=== PATIENT | female | born 1935 | race Two or more races ===

== ENCOUNTER 2017-11-22 23:34 | Inpatient (IN) | payer MEDICARE, OTHER ==
[~2017-11-22] VITALS: Ht 157.5 cm; Wt 63.5 kg
[2017-11-22 23:34] VITALS: BP 150/86
[~2017-11-22 23:34] MED LIST: ASPIR 8181 MG ORAL; BLOOD PRESSURE MED ORAL; CHOLESTEROL MED ORAL; THYROID MED ORAL
[2017-11-22] MEDS ORDERED: Enoxaparin 60mg Inj SUBQ ONE (23:45)
[2017-11-23] VITALS (7 sets, daily range): BP systolic 94–130; BP diastolic 47–78
[2017-11-23 00:01] LABS: BASOPHILS % (AUTO) 1.1 % (0.0-2.0); EOSINOPHILS % (AUTO) 1.8 % (0.0-3.0); HEMATOCRIT 36.3 % (37.0-47.0); HEMOGLOBIN 12.2 G/DL (12.0-16.0); LYMPHOCYTES % (AUTO) 34.2 % (20.0-45.0); MEAN CORPUSCULAR VOLUME 85 FL (80-99); MONOCYTES % (AUTO) 5.1 % (1.0-10.0); NEUTROPHILS % (AUTO) 57.8 % (45.0-75.0); PLATELET COUNT 223 K/UL (150-450); RED BLOOD COUNT 4.29 M/UL (4.20-5.40); RED CELL DISTRIBUTION WIDTH 11.6 % (11.6-14.8); WHITE BLOOD COUNT 8.5 K/UL (4.8-10.8)
[2017-11-23 00:11] LABS: ANION GAP 10 mmol/L (5-15); BLOOD UREA NITROGEN 29 mg/dL (7-18); CALCIUM 8.6 MG/DL (8.5-10.1); CARBON DIOXIDE 27 MMOL/L (21-32); CHLORIDE 98 MMOL/L (98-107); CREATININE 1.1 MG/DL (0.55-1.30); POTASSIUM 3.3 MMOL/L (3.5-5.1); SODIUM 135 MMOL/L (136-145)
[2017-11-23 00:26] LABS: ALANINE AMINOTRANSFERASE 21 U/L (12-78); ALBUMIN 3.5 G/DL (3.4-5.0); ALBUMIN/GLOBULIN RATIO 0.9 (1.0-2.7); ALKALINE PHOSPHATASE 77 U/L (46-116); ASPARTATE AMINO TRANSFERASE 14 U/L (15-37); BILIRUBIN,TOTAL 0.4 MG/DL (0.2-1.0); CKMB 1.5 NG/ML (0.0-3.6); CREATINE KINASE 106 U/L (26-308)
--- NOTE | 2017-11-23 01:32 | Emergency Room Report ---
History of Present Illness General Chief Complaint: Chest Pain Source: Patient, Family Member, EMS Present Illness HPI This is a-year-old female with a history of paroxysmal A. fib. She presents with chief complaint of rapid heartbeat and having chest pressure chest pain. Radiate to her left arm. She called 911 and was given aspirin and nitroglycerin symptom resolved. No fever or chills and no exertional component. Only taking aspirin. Denies any other complaint. She said that she had a stress test before and was negative. Allergies: Coded Allergies: No Known Allergies (Unverified , 08/14/12) Patient History Past Medical History: see triage record, old chart reviewed, CAD Past Surgical History: none Pertinent Family History: none Social History: Denies: smoking Last Menstrual Period: None Now: No Immunizations: other Reviewed Nursing Documentation: PMH: Agreed, PSxH: Agreed Nursing Documentation-PMH Hx Cardiac Problems: Yes - ANGIOGRAPH LAST YEAR Hx Hypertension: Yes - palpatation Hx Cancer: Yes - PATIENT STATES SHE HAD "THYROID CANCER" Hx Gastrointestinal Problems: Yes Hx Neurological Problems: No Review of Systems Eye: Denies: eye pain, blurred vision ENT: Denies: ear pain, nose congestion, throat swelling Respiratory: Denies: cough, shortness of breath Cardiovascular: Reports: chest pain, Denies: palpitations Gastrointestinal: Denies: abdominal pain, diarrhea, nausea, vomiting Musculoskeletal: Denies: back pain, joint pain Skin: Denies: rash Neurological: Denies: headache, numbness Endocrine: Denies: increased thirst, increased urine Hematologic/Lymphatic: Denies: easy bruising All Other Systems: negative except mentioned in HPI Physical Exam Vital Signs Date Time Temp Pulse Resp B/P (MAP) Pulse Ox O2 Delivery O2 Flow Rate FiO2 11/22/17 23:23 97.5 122 20 150/86 98 Room Air -100 blood pressure and tachycardia Sp02 EP Interpretation: reviewed, normal General Appearance: well appearing, no apparent distress, alert Head: normocephalic, atraumatic Eyes: bilateral eye PERRL, bilateral eye EOMI ENT: hearing grossly normal, normal pharynx Neck: full range of motion, supple, no meningismus Respiratory: chest non-tender, lungs clear, normal breath sounds Cardiovascular #1: regular rate, rhythm - Heart rate 60, no murmur Gastrointestinal: normal bowel sounds, non tender, no mass, no organomegaly, no bruit, non-distended Musculoskeletal: back normal, gait/station normal, normal range of motion Psychiatric: mood/affect normal Skin: warm/dry Medical Decision Making Diagnostic Impression: Primary Impression: Chest pain Qualified Codes: R07.9 - Chest pain, unspecified Additional Impressions: ACS (acute coronary syndrome) Palpitations ER Course Patient with chest pain. Most likely secondary to rapid A. fib. Heart rate is been in the 50s and 60s here. Blood pressure stable. She is asymptomatic here. Because of her age and risk factor, will admit for further workup. Laboratory Tests Test 11/22/17 23:40 White Blood Count 8.5 K/UL (4.8-10.8) Red Blood Count 4.29 M/UL (4.20-5.40) Hemoglobin 12.2 G/DL (12.0-16.0) Hematocrit 36.3 % (37.0-47.0) L Mean Corpuscular Volume 85 FL (80-99) Mean Corpuscular Hemoglobin 28.4 PG (27.0-31.0) Mean Corpuscular Hemoglobin Concent 33.6 G/DL (32.0-36.0) Red Cell Distribution Width 11.6 % (11.6-14.8) Platelet Count 223 K/UL (150-450) Mean Platelet Volume 6.8 FL (6.5-10.1) Neutrophils (%) (Auto) 57.8 % (45.0-75.0) Lymphocytes (%) (Auto) 34.2 % (20.0-45.0) Monocytes (%) (Auto) 5.1 % (1.0-10.0) Eosinophils (%) (Auto) 1.8 % (0.0-3.0) Basophils (%) (Auto) 1.1 % (0.0-2.0) Prothrombin Time 10.4 SEC (9.30-11.50) Prothromb Time International Ratio 1.0 (0.9-1.1) Activated Partial Thromboplast Time 26 SEC (23-33) Sodium Level 135 MMOL/L (136-145) L Potassium Level 3.3 MMOL/L (3.5-5.1) L Chloride Level 98 MMOL/L (98-107) Carbon Dioxide Level 27 MMOL/L (21-32) Anion Gap 10 mmol/L (5-15) Blood Urea Nitrogen 29 mg/dL (7-18) H Creatinine 1.1 MG/DL (0.55-1.30) Estimat Glomerular Filtration Rate mL/min (>60) Glucose Level 141 MG/DL (74-106) H Calcium Level 8.6 MG/DL (8.5-10.1) Total Bilirubin 0.4 MG/DL (0.2-1.0) Aspartate Amino Transf (AST/SGOT) 14 U/L (15-37) L Alanine Aminotransferase (ALT/SGPT) 21 U/L (12-78) Alkaline Phosphatase 77 U/L (46-116) Total Creatine Kinase 106 U/L (26-308) Creatine Kinase MB 1.5 NG/ML (0.0-3.6) Creatine Kinase MB Relative Index 1.4 Troponin I 0.000 ng/mL (0.000-0.056) Total Protein 7.6 G/DL (6.4-8.2) Albumin 3.5 G/DL (3.4-5.0) Globulin 4.1 g/dL Albumin/Globulin Ratio 0.9 (1.0-2.7) L Lab Results Impression labs normal EKG Diagnostic Results Rate: normal Rhythm: NSR ST Segments: no acute changes Rhythm Strip Diag. Results Rhythm Strip Time: 01:31 EP Interpretation: yes Rate: 60 Rhythm: NSR, no PVC's, no ectopy Chest X-Ray Diagnostic Results Chest X-Ray Diagnostic Results : Chest X-Ray Ordered: Yes # of Views/Limited/Complete: 1 View Indication: Chest Pain EP Interpretation: Yes Interpretation: no consolidation, no effusion, no pneumothorax, no acute cardiopulmonary disease Impression: No acute disease Electronically Signed by: Alec Bose MD Last Vital Signs Date Time Temp Pulse Resp B/P (MAP) Pulse Ox O2 Delivery O2 Flow Rate FiO2 11/22/17 23:23 97.5 122 20 150/86 98 Room Air Status: improved Disposition: ADMITTED INPATIENT Condition: Serious Referrals: NOT CHOSEN KEVIN/,REFERRING (PCP) ALEC BOSE M.D. Nov 23, 2017 01:32
--- NOTE | 2017-11-23 10:20 | Diagnostic Imaging Report ---
Indication: Reason For Exam: CP Technique: One view of the chest Comparison: none Findings: Suboptimal inspiration. Atelectatic changes and crowding of the vascular markings are seen at the left lung base. There is central bronchial wall thickening. No definite acute fractures or dislocations. Heart size is normal. The aorta is tortuous and calcified Impression: No acute process
[2017-11-23] MEDS ORDERED: Zolpidem 5mg tab ORAL PRN (11:45)
[2017-11-23] MEDS: Aspirin Baby 81mg ORAL SCH (13:13)
[2017-11-23] MEDS: Nitroglycerin 2% oint pkt TOPIC SCH ×2 (16:34→22:00)
[2017-11-23] MEDS ORDERED: AMLODIPINE BES2.5 MG ORAL (17:32)
[2017-11-23] MEDS ORDERED: BENICAR HCT 401 EACH ORAL (17:36)
[2017-11-23] MEDS ORDERED: FISH OIL CAP1000 MG ORAL (17:36)
[2017-11-23] MEDS ORDERED: CRESTOR20 MG ORAL (17:36)
[2017-11-23] MEDS ORDERED: EZETIMIBE10 MG PO (17:36)
[2017-11-23] MEDS ORDERED: LEVOTHYROXINE137 MCG ORAL (17:36)
--- NOTE | 2017-11-23 20:15 | History and Physical Report ---
DATE OF ADMISSION: 11/23/2017 REASON FOR ADMISSION: Chest pain. HISTORY OF PRESENT ILLNESS: This is an 82-year-old female with history of atrial fibrillation, which is paroxysmal. The patient presents with fast heart beat as well as some chest pain and chest pressure with radiation to the left arm. The patient was brought in by paramedics. She was given aspirin and nitroglycerin in the field. Currently, without fevers or chills. In the emergency room, the patient was seen and evaluated, was noted to have a heart rate of 50 to 60, blood pressure was stable, and the patient was felt to require admission for possible acute coronary syndrome. The patient currently is comfortable without significant distress. No other associated symptoms noted. No ill contacts. No recent travel. No cough or congestion. PAST MEDICAL HISTORY: Notable for history of CAD, history of recent angiogram, history of thyroid cancer, and history of atrial fibrillation, paroxysmal. MEDICATIONS: Reviewed. ALLERGIES: Reviewed. SOCIAL HISTORY: Nonsmoker and nondrinker. The patient is independent, lives at home. FAMILY HISTORY: Otherwise negative for heart disease. REVIEW OF SYSTEMS: Otherwise negative, all reviewed. PHYSICAL EXAMINATION: GENERAL: A well-developed female, comfortable at present. VITAL SIGNS: Blood pressure 94/69, respirations 26, saturations 100%, pulse 74, and temperature 97.5. HEENT: Fairly negative. The patient's oropharynx is moist. NECK: Supple. No adenopathy. LUNGS: Moderate air entry. No rhonchi or wheezes. CARDIAC: Fairly regular, but bradycardic. No murmurs, rubs, or gallops. ABDOMEN: Soft, nontender, and nondistended. EXTREMITIES: No cyanosis or clubbing. No significant edema. NEUROLOGIC: Grossly nonfocal. LABORATORY DATA: Laboratory data reviewed in detail. CBC essentially normal. Electrolytes, sodium 135, potassium 3.3, otherwise fairly negative. Blood sugar 141. Troponin initially negative. IMPRESSION: 1. Chest pain, possible acute coronary syndrome. 2. Atrial fibrillation, paroxysmal. 3. History of coronary artery disease. RECOMMENDATION: Resume home medications. Serial troponins. Cardiac evaluation. Telemetry and monitor. Followup EKG for change, and follow up further. If the patient is stable, we will proceed with discharge planning to home with an outpatient followup. Rico Landaverde M.D. DR: JOB JOB#: [id number] CC: JAYME
[2017-11-23] MEDS ORDERED: Atenolol 25mg tab ORAL SCH (21:00)
[2017-11-23] MEDS ORDERED: Atorvastatin 20mg tab ORAL SCH (21:00)
[2017-11-23] MEDS: Heparin 5000 units/ml inj SUBQ SCH (21:00)
[2017-11-24 00:44] VITALS: BP 128/61
[2017-11-24 08:00] VITALS: BP 128/59
[2017-11-24 08:20] LABS: BASOPHILS % (AUTO) 1.6 % (0.0-2.0); EOSINOPHILS % (AUTO) 2.5 % (0.0-3.0); HEMATOCRIT 33.5 % (37.0-47.0); HEMOGLOBIN 11.3 G/DL (12.0-16.0); LYMPHOCYTES % (AUTO) 40.2 % (20.0-45.0); MEAN CORPUSCULAR VOLUME 86 FL (80-99); MONOCYTES % (AUTO) 6.6 % (1.0-10.0); NEUTROPHILS % (AUTO) 49.1 % (45.0-75.0); PLATELET COUNT 232 K/UL (150-450); RED BLOOD COUNT 3.91 M/UL (4.20-5.40); WHITE BLOOD COUNT 5.9 K/UL (4.8-10.8)
[2017-11-24 08:48] LABS: ANION GAP 7 mmol/L (5-15); BLOOD UREA NITROGEN 26 mg/dL (7-18); CALCIUM 8.3 MG/DL (8.5-10.1); CARBON DIOXIDE 28 MMOL/L (21-32); CHLORIDE 104 MMOL/L (98-107); CHOLESTEROL 147 MG/DL (< 200); CREATININE 1.1 MG/DL (0.55-1.30); HDL CHOLESTEROL 87 MG/DL (40-60); POTASSIUM 4.1 MMOL/L (3.5-5.1); SODIUM 139 MMOL/L (136-145); TRIGLYCERIDES 67 MG/DL (30-150)
--- NOTE | 2017-11-24 08:52 | General Progress Note ---
Assessment/Plan Assessment/Plan IMPRESSION: 1. Chest pain, possible acute coronary syndrome. 2. Atrial fibrillation, paroxysmal. 3. History of coronary artery disease. 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 return to ER if chest pain recurs dc beta atul patient stable at present and able to to ambulate impression, plan, and exam edited and reviewed in detail care discussed with RN Subjective Allergies: Coded Allergies: No Known Allergies (Unverified , 08/14/12) Subjective wants to go home roopa with beta atul use Objective Last 24 Hour Vital Signs Date Time Temp Pulse Resp B/P (MAP) Pulse Ox O2 Delivery O2 Flow Rate FiO2 11/24/17 04:00 47 11/24/17 00:44 97.6 59 18 128/61 95 Room Air 11/24/17 00:00 52 11/23/17 22:00 130/78 11/23/17 21:00 94 128/56 11/23/17 20:34 97.9 68 18 130/78 94 Room Air 11/23/17 20:00 64 11/23/17 16:34 125/55 11/23/17 16:00 61 11/23/17 16:00 97.5 73 18 125/55 97 11/23/17 12:00 98.2 70 18 109/55 95 Room Air 11/23/17 09:48 97.5 74 26 94/69 100 Room Air Intake and Output 11/23/17 11/24/17 19:00 07:00 Intake Total 490 ml Output Total 200 ml Balance 490 ml -200 ml Intake Oral 490 ml Output Urine Total 200 ml # Voids 1 Laboratory Tests 11/23/17 19:47: Troponin I 0.007 11/24/17 07:35: Troponin I 0.004, White Blood Count 5.9, Red Blood Count 3.91L, Hemoglobin 11.3L , Hematocrit 33.5L, Mean Corpuscular Volume 86, Mean Corpuscular Hemoglobin 28.8 , Mean Corpuscular Hemoglobin Concent 33.5, Red Cell Distribution Width 12.0, Platelet Count 232, Mean Platelet Volume 7.1, Neutrophils (%) (Auto) 49.1, Lymphocytes (%) (Auto) 40.2, Monocytes (%) (Auto) 6.6, Eosinophils (%) (Auto) 2.5, Basophils (%) (Auto) 1.6, Sodium Level [Pending], Potassium Level [Pending] , Chloride Level [Pending], Carbon Dioxide Level [Pending], Blood Urea Nitrogen [Pending], Creatinine [Pending], Estimat Glomerular Filtration Rate [Pending], Glucose Level [Pending], Calcium Level [Pending], Triglycerides Level [Pending] , Cholesterol Level [Pending], LDL Cholesterol [Pending], HDL Cholesterol [ Pending], Cholesterol/HDL Ratio [Pending] Height (Feet): 5 Height (Inches): 2.00 Weight (Pounds): 140 Objective GENERAL: A well-developed female, comfortable at present. but wants to go home HEENT: Fairly negative. The patient's oropharynx is moist. NECK: Supple. No adenopathy. LUNGS: Moderate air entry. No rhonchi or wheezes. CARDIAC: Fairly regular, but bradycardic. No murmurs, rubs, or gallops. ABDOMEN: Soft, nontender, and nondistended. EXTREMITIES: No cyanosis or clubbing. No significant edema. NEUROLOGIC: Grossly nonfocal. CHARITY LI Nov 24, 2017 08:52
[2017-11-24 09:00] VITALS: BP 128/61
[2017-11-24] MEDS: Heparin 5000 units/ml inj SUBQ SCH (09:00)
[2017-11-24] MEDS: Aspirin Baby 81mg ORAL SCH (09:23)
--- NOTE | 2017-11-24 13:15 | Consultation ---
DATE OF CONSULTATION: 11/23/2017 CARDIOLOGY CONSULTATION CONSULTING PHYSICIAN: Fausto Thompson M.D. REQUESTING PHYSICIAN: Rico Landaverde M.D. REASON FOR CONSULTATION: Chest pain in the setting of atrial fibrillation. HISTORY OF PRESENT ILLNESS: This 82-year-old female has a long-standing history of paroxysmal atrial fibrillation and coronary artery disease. She also has a history of thyroid disorder with thyroid cancer and apparent thyroidectomy. She presented to the emergency room with a rapid heart rate and associated chest pressure radiating to her left arm. She was given aspirin and nitroglycerin in the field by paramedics and was asymptomatic in the emergency room with a controlled heart rate in the range of 50 to 60. The patient was admitted for further management and evaluation. PAST MEDICAL HISTORY: Coronary artery disease, thyroid cancer, paroxysmal atrial fibrillation. MEDICATIONS: Reviewed and reconciled. ALLERGIES: None known. SOCIAL HISTORY: Negative for smoking, alcohol, or substance abuse. FAMILY HISTORY: Noncontributory. REVIEW OF SYSTEMS: She had a recent angiogram within the last year. Apparently, she did not need any intervention. She has been managed medically. She has no leg swelling or shortness of breath. There is no history of blood clotting. She has not been on blood thinners to her knowledge. PHYSICAL EXAMINATION: GENERAL: Well developed, well nourished, no distress. VITAL SIGNS: Blood pressure 94/69, pulse 74, respirations 26. Afebrile. HEENT: Normocephalic and atraumatic. Conjunctivae pink. Oropharynx clear. NECK: Supple. Jugular venous pressure normal. CARDIAC: Regular rhythm. Slow rate. Normal S1, S2. There is a fourth heart sound. ABDOMEN: Soft. EXTREMITIES: No edema. LABORATORY DATA: Troponin negative. Chest x-ray, no acute process. Potassium 3.3. IMPRESSION: 1. Acute coronary syndrome. 2. Hypokalemia. 3. Paroxysmal atrial fibrillation with rapid ventricular response, now resolved. 4. History of thyroid cancer. PLAN: Cardiac monitoring. Optimize antianginal regimen and rate control therapy. Continue anti-platelet therapy. Address full anticoagulation. risk-benefit ratio for cardioembolic prophylaxis in the setting of paroxysmal atrial fibrillation. If the patient does not have any recurring symptoms or signs of ischemia, she can be followed up as an outpatient. Fausto Jessika Thompson DR: CHELSI JOB#: [id number] CC:
--- NOTE | 2017-11-24 21:15 | Progress Note ---
DATE: 11/24/2017 CARDIOLOGY PROGRESS NOTE SUBJECTIVE: The patient has no more chest pain. No shortness of breath. EKGs are without any interval changes or acute ST abnormalities. The troponins are negative. The patient had a recent outpatient cardiac catheterization and recommended for her medical management. OBJECTIVE: VITAL SIGNS: Blood pressure 126/61, pulse 47 to 59, respirations 18, and afebrile. NECK: Supple. LUNGS: Clear. CHEST: Chest wall without tenderness. CARDIAC: Regular rhythm and rate. Normal S1 and S2. ABDOMEN: Soft. EXTREMITIES: No edema. IMPRESSION: 1. Anginal episode. 2. Paroxysmal atrial fibrillation. 3. Coronary artery disease with chronic stable angina. 4. Bradycardia, secondary to beta-atul therapy. 5. Angina, possibly precipitated by increased oxygen demand with rapid atrial tachyarrhythmias. PLAN: 1. Recommend stable for outpatient followup. 2. Continue beta-blockade. 3. Follow up with primary life advisor. 4. May consider starting amiodarone for better suppression of atrial arrhythmias. 5. May also consider full anticoagulation for cardioembolic prophylaxis and frequent episodes of atrial fibrillation are now being realized. These options were all discussed with the patient, who prefers to address them with her regular life advisor before making further changes to her medication regimen. She is advised to return to the emergency room here or at her usual hospital, [facility] should she have recurring chest pain of clinical significance to her. Fausto Thompson M.D. DR: CYRUS JOB#: [id number] CC:
[2017-11-25] MEDS ORDERED: hydroCHLOROthiazide 12.5mg TAB ORAL SCH (09:00)
[2017-11-25] MEDS ORDERED: Irbesartan 150mg tablet ORAL SCH (09:00)
--- NOTE | 2017-11-28 08:42 | Discharge Summary ---
Discharge Summary Hospital Course Date of Admission Nov 22, 2017 at 23:52 Date of Discharge Nov 24, 2017 at 13:10 Admitting Diagnosis ACUTE CORONARY SYNDROME ARON Meraz is a 82 year old female who was admitted on Nov 22, 2017 at 23:52 for Acute Coronoary Syndrome Hospital Course dc summary #[id number] Discharge Medications Continued Medications: Amlodipine Besylate* (Amlodipine Besylate*) 2.5 Mg Tablet 5 MG ORAL DAILY, TAB Aspirin* (Aspir 81*) 81 Mg Tablet.dr 81 MG ORAL DAILY, TAB Ezetimibe (Ezetimibe) 10 Mg Tablet 10 MG PO DAILY, TAB Fish Oil (Fish Oil 1,000 mg Capsule) 1 Each Capsule 1000 MG ORAL DAILY, CAP Levothyroxine Sodium (Levothyroxine Sodium) 137 Mcg Tablet Unknown Dose ORAL DAILY, TAB Take in the morning on an empty stomach, at least 30 minutes before food. Olmesartan/Hydrochlorothiazide 40-12.5MG (Benicar Hct 40-12.5 Mg Tablet) 1 Each Tablet 1 TAB ORAL DAILY, TAB Rosuvastatin Calcium* (Crestor*) 20 Mg Tablet 20 MG ORAL DAILY, TAB [Blood Pressure Med] () Unknown Dose ORAL DAILY [Cholesterol Med] () Unknown Dose ORAL BEDTIME [Thyroid Med] () Unknown Dose ORAL DAILY Discharge Condition Upon Discharge: stable Discharge Disposition Patient was discharged to Home (01) Discharge Diagnoses: Discharge Instructions Discharge Instructions Special Instructions I have been assigned to complete a D/C Summary on this account. I was not involved in the patient management Mila Bass NP (Vanchtein) Nov 28, 2017 08:42
--- NOTE | 2017-11-28 23:45 | Discharge Summary 2 SIG ---
DATE OF ADMISSION: 11/22/2017 DATE OF DISCHARGE: 11/24/2017 REASON FOR ADMISSION: 82-year-old female with history of paroxysmal atrial fibrillation, thyroid cancer, and coronary artery disease with recent angiogram presented with a chief complaint of palpitations and pressure type chest pain with radiation to the left arm. She was given aspirin and nitroglycerin by paramedics and her symptoms resolved. She denied fever and chills. Denied exertional component of shortness of breath. The patient was taking aspirin prior. Recent stress test was negative. Upon evaluation in the emergency department, the patient had atrial fibrillation with a heart rate of 122, blood pressure was 150/86, and pulse oximetry was 98% on the room air. No leukocytosis. Stable hemoglobin and hematocrit. Stable electrolytes except potassium - 3.3. Troponin negative. The patient was admitted with chest pain, possible acute coronary syndrome, paroxysmal atrial fibrillation with rapid ventricular response, and history of coronary artery disease. HOSPITAL COURSE: The patient was admitted to telemetry floor. Cardiology consult was requested. Serial troponin x4 were negative. The patient was followed up with EKG, which revealed no acute ischemic changes. Home medications were resumed. Antianginal regimen was titrated. Rate was controlled with beta-atul. Antiplatelet therapy was resumed. Scoreboard Operator recommended full anticoagulation given recurrent atrial fibrillation with assessment of risk to benefit ratio. The patient preferred to follow up with her primary telephone lineman Dr. Balbuena to discuss this issue. Thyroid replacement was resumed. The patient with a history of thyroid cancer. Volumes and cardiorenal parameters were closely followed. Lipid panel was within normal limits. Fish oil and Zetia were continued. According to telephone lineman, the patient had an anginal episode likely precipitated by her oxygen demand due to the rapid atrial tachyarrhythmia, which resolved. Potassium was replaced. The patient was stable for discharge home. The patient reminded to return to emergency department if palpitations or chest pain recur. DISCHARGE DIAGNOSES: 1. Chest pain secondary to anginal episode likely precipitated by high oxygen demand with rapid atrial tachyarrhythmia. 2. Paroxysmal atrial fibrillation with increased ventricular response, resolved. 3. History of coronary artery disease with recent angiogram. 4. History of thyroid cancer. 5. Coronary artery disease with chronic stable angina. 6. Hypokalemia. DISCHARGE MEDICATIONS: See medication reconciliation list. DISCHARGE INSTRUCTIONS: The patient was discharged home. Followup with primary medical doctor. Follow up with the telephone lineman next week, Dr. Balbuena. The patient reminded to return to emergency department if palpitations or chest pain recur. The patient verbalized discharge instructions. Rico Landaverde M.D. I have been assigned to dictate discharge summary on this account and I was not involved in the patient's management. Mila TrujilloLeanna malik DR: SINDY JOB#: [id number] CC: JAYME
--- NOTE | 2017-12-05 00:08 | Cardiology Report ---
APPROVED REPORT EKG Measurement Heart [id number] Sinus bradycardia Otherwise normal ECG
--- NOTE | 2017-12-05 00:19 | Cardiology Report ---
APPROVED REPORT EKG Measurement Heart [id number] Normal sinus rhythm Normal ECG
== END 2017-11-24 13:10 | disposition home or self-care (01) | DRG 310 ==
LOC: EDBD 23:34 → EMR 23:50 → 2E 23:52 → UNDOADMIN 11-23 00:40 → 2E 11-23 00:40 → EDBEDREQ 11-23 08:13
DX: I48.0 Paroxysmal atrial fibrillation (principal); E87.6 Hypokalemia; R00.1 Bradycardia, unspecified; I25.119 Atherosclerotic heart disease of native coronary artery with unspecified angina pectoris; T50.995A Adverse effect of other drugs, medicaments and biological substances, initial encounter; Y92.019 Unspecified place in single-family (private) house as the place of occurrence of the external cause; Z85.850 Personal history of malignant neoplasm of thyroid; Z79.82 Long term (current) use of aspirin
CPT/HCPCS: 36415; 71010; 80048; 80053; 80061; 82550; 82553; 84484; 85025; 85610; 85730; 93005; 99285; J8499